=== PATIENT | male | born 1965 | race Caucasian/White ===

== ENCOUNTER → 2017-01-01 | Outpatient (CLI) | payer BC, OTHER ==
--- NOTE | 2017-01-01 14:20 | DIAGNOSTIC IMAGING REPORT ---
LEFT INDEX FINGER 3 VIEWS CLINICAL HISTORY: LEFT INDEX FINGER INJURY PAIN COMPARISON: None. DISCUSSION: 3 views reveal no acute fractures. No radiopaque foreign bodies are visualized. There is cassette artifact overlying the middle phalanx on the oblique view. IMPRESSION: 1. No acute fractures or dislocations 2. No radiopaque foreign bodies identified Electronically signed by: Horacio García M.D. 01/01/2017 2:19 PM Dictated Date/Time: 01/01/2017 2:18 PM
== END | disposition home or self-care (01) ==
LOC: C.RDSM 13:52
PROVIDERS: ATTEND Physical Medicine & Rehabilitation Sports Medicine
DX: S69.90XA Unspecified injury of unspecified wrist, hand and finger(s), initial encounter (principal); X58.XXXA Exposure to other specified factors, initial encounter